=== PATIENT | male | born 1985 | race Hispanic/Latino ===

== ENCOUNTER 2018-10-14 22:37 | Emergency (ER) | payer SELFPAY ==
[2018-10-14 22:47] VITALS: BP 144/121; PULSE 79; RESP 18; TEMP 36.8; O2SAT 99; BMI 44.1
--- NOTE | 2018-10-14 23:01 | ED_ITS ---
HPI - Ear Problem General Chief complaint: Ear Stated complaint: RIGHT EAR PAIN Time Seen by Provider: 10/14/18 22:56 Source: patient Mode of arrival: ambulatory Limitations: no limitations History of Present Illness HPI Narrative: Patient is a 33-year-old otherwise healthy male here for evaluation of right ear pain. States has been going on for the past couple days. Has tried to clean his ears out several times. Does not have a sore throat. Does have some right-sided congestion. Related Data Previous Rx's Medication Instructions Recorded ciprofloxacin-hydrocortisone 3 drop EAR-RIGHT BID 7 Days #10 ml 10/14/18 Allergies Allergy/AdvReac Type Severity Reaction Status Date / Time No Known Drug Allergies Allergy Verified 10/14/18 22:50 Review of Systems Constitutional Denies fever(s) and Denies headache(s) ENT Ears, Nose, Mouth, and Throat: Denies vertigo, Denies dizziness and Denies headache(s) Comments: Right-sided ear fullness, pain, right-sided sinus congestion Cardiovascular Denies dyspnea Respiratory Denies dyspnea Integumentary/Breasts Denies rash Neurologic Denies vertigo, Denies dizziness and Denies headache(s) Hematologic/Lymphatic Denies easy bleeding and Denies easy bruising PFSH Medical History Healthy adult (Acute) Social History Smoking Status: Current some day smoker Social History Smoking Status: Current some day smoker Exam Initial Vital Signs Initial Vital Signs: Vital Signs Temperature 98.2 F 10/14/18 22:47 Pulse Rate 79 10/14/18 22:47 Respiratory Rate 18 10/14/18 22:47 Blood Pressure 144/121 H 10/14/18 22:47 Pulse Oximetry 99 10/14/18 22:47 Const General: cooperative, healthy appearing, comfortable, well developed, well groomed and No acute distress Orientation: alert, awake and oriented x3 HENMT Head: normal to inspection and normocephalic Ears: TM normal on the left, EAC abnormal erythema on the right, edema on the right and EAC tenderness on the right, hearing grossly impaired on the right and TM abnormal perforated without discharge on the right Nose: external nose normal Teeth and gingiva: dentition normal Throat: posterior oropharynx normal Resp Effort & Inspection: normal respiratory effort Auscultation: clear to auscultation bilaterally Cardio Rate: regular rate Rhythm: regular rhythm Skin Lesions: no lesions Rashes: no rashes Neuro General: alert, awake and oriented x3 Psych Appearance: grossly normal and well kempt Course Vital Signs - 8 hr 10/14/18 22:47 10/14/18 23:26 Temperature 98.2 F Pulse Rate 79 71 Respiratory Rate 18 16 Blood Pressure 144/121 H 141/64 H Pulse Oximetry 99 97 Medical Decision Making MDM Narrative Medical decision making narrative: Patient with redness and swelling of the e xternal auditory canal with a right ear. He does have some muffling of hearing of this side. It was difficult to see the tympanic membrane however I do have some concern that there may be a rupture of the tympanic membrane for what is visible. There is no active drainage. Discussed all this with the patient. Was sent home with ear drops. He was instructed to contact his primary doctor so that when he returned home he could follow-up. He was given return precautions. He expressed understanding and agreement with plan. Discharge Plan Departure Patient Disposition: Home Clinical Impression: Otitis media, serous, TM rupture Otitis externa Qualifiers: Otitis externa type: unspecified type Chronicity: acute Laterality: right Qualified Code(s): H60.501 - Unspecified acute noninfective otitis externa, right ear Discharge Date/Time: 10/14/18 23:27 Interventions: ED Discharge Assessment Last Done: 10/14/18 23:26 Instructions: How to Instill Ear Drops, Ruptured Eardrum Activity Restrictions/Additional Instructions: Use the antibiotic drops as directed. Tomorrow contact your primary care doctor back home to schedule an appointment for when you return home. Return to the emergency department for any new or worsening symptoms Prescriptions: New ciprofloxacin-hydrocortisone 0.2-1 % drops,suspension 3 drop EAR-RIGHT BID 7 Days Qty: 10 RF: 0
[2018-10-14 23:26] VITALS: BP 141/64; PULSE 71; RESP 16; O2SAT 97
== END 2018-10-14 23:27 | disposition home or self-care (01) ==
PROVIDERS: Emergency Provider Emergency Medicine
DX: H65.90 Unspecified nonsuppurative otitis media, unspecified ear (principal); H72.90 Unspecified perforation of tympanic membrane, unspecified ear
CPT/HCPCS: 99282